=== PATIENT | female | born 1935 | race Caucasian/White ===

== ENCOUNTER 2019-05-18 21:58 | Inpatient (IN) ==
--- NOTE | 2019-05-18 22:29 | ERNOTE ---
ER Female HPI Stated Complaint: UTI Presenting Symptoms: other Time Seen by Provider: 05/18/19 22:28 Source: patient - Fatigue fever, family Exam Limitations: no limitations Immunizations: IMMUNIZATION HX Immunizations Up to Date Yes History of Influenza Vaccine No Hx Pneumococcal Vaccination Yes Allergies/Adverse Reactions: Allergies Iodinated Contrast Media [Iodinated Contrast- Oral and IV Dye] Allergy (Mild, Verified 05/19/19 05:11) Hives iodine Allergy (Mild, Verified 05/19/19 05:11) Hives sulfacetamide Allergy (Mild, Verified 05/19/19 05:11) Hives latex Adverse Reaction (Mild, Verified 05/19/19 05:11) RASH Home Medications: HOME MEDICATIONS Multivitamin [Multivitamins] 1 ea PO DAILY 11/16/12 [Last Taken Unknown] Blood Sugar Diagnostic, Drum [Accu-Chek Compact] 1 ea MC DAILY 03/21/15 [Last Taken Unknown] Cholecalciferol (Vitamin D3) [Vitamin D-3] 2,000 unit PO DAILY 03/21/15 [Last Taken Unknown] Clopidogrel Bisulfate [Plavix] 75 mg PO DAILY 03/21/15 [Last Taken Unknown] Famotidine [Pepcid AC] 10 mg PO DAILY PRN 03/21/15 [Last Taken Unknown] coenzyme Q10 10 mg capsule 10 mg PO DAILY cap 02/15/18 [Last Taken Unknown] hydrochlorothiazide 12.5 mg capsule 12.5 mg PO DAILY 02/15/18 [Last Taken Unknown] pravastatin 20 mg tablet 20 mg PO DAILY #90 tab 04/27/18 [Last Taken Unknown] acetaminophen 500 mg tablet 500 mg PO Q6H PRN 06/03/18 [Last Taken Unknown] losartan 100 mg tablet 100 mg PO DAILY #90 tab 08/16/18 [Last Taken Unknown] glipizide ER 5 mg tablet, extended release 24 hr 5 mg PO DAILY #90 tab 01/20/19 [Last Taken Unknown] levothyroxine 125 mcg tablet 125 mcg PO DAILY #90 tab 01/20/19 [Last Taken Un known] amlodipine 5 mg tablet 5 mg PO DAILY #90 tab 04/15/19 [Last Taken Unknown] hydrocodone 5 mg-acetaminophen 325 mg tablet See Rx Instructions PO .COMPLEX PRN #30 tab 04/28/19 [Last Taken Unknown] - History of Present Illness Narrative: Patient was in the hospital here over the weekend diagnosed with UTI 2 days ago. She was unable to get the antibiotics until yesterday she started feeling better today in the morning but in the evening began to be febrile and fatigued. Timing: Present: getting worse Quality: Present: moderate, severe Prior Treatment: Present: recently seen, treated by physician, currently on antibiotics Review of Systems - Review of Systems Constitutional: Present: See HPI, recent illness, fever, fatigue EYE: Absent: vision changes Respiratory: Present: shortness of breath Cardiology: Absent: chest pain, palpitations Gastrointestinal/Abdominal: Present: nausea. 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 Everett Surgical History: Surgical History (Updated 05/25/18 @ 10:45 by Oscar Jones RN) History of esophagogastroduodenoscopy (EGD) Onset Date: ~04/2018 [facility] H/O colonoscopy Onset Date: ~2006 benign polyp H/O dilation and curettage Onset Date: ~2006 polypectomy at [facility] H/O hernia repair x4 surgeries on bilateral [id number] H/O tubal ligation History of carpal tunnel release '13 & '15 History of colon surgery Onset Date: ~1996 ruptured diverticulitis, had colostomy for 3 months History of thyroid surgery Onset Date: ~1989 nodule History of tonsillectomy arteriectomy, carotid Onset Date: ~2003 Family History: Family History (Updated 02/15/18 @ 09:59 by KARINA Marcelo) Brother , suicide No problems noted. Father Myocardial infarction, Onset Age: 73 Lung cancer Cancer of kidney Mother , 70 CVA (cerebral vascular accident) Social History: (Last Reviewed 05/19/19 @ 05:12 by Xenia Her RN) Social History: Marital status: household members: spouse current occupational status: retired current occupation: retired Highest education level completed: 11th grade Service: No Tobacco: Smoking Status: Never smoker Alcohol: alcohol intake: current alcohol intake frequency: holiday/special occasion Substance Use: substance use type: does not use Dietary Habits: caffeine: Yes caffeine comment: everyday Type: other Exercise: frequency: 1-2 times per week Physical Exam - Physical Exam General Appearance: Present: wd/wn, alert, mild distress Head Exam: Present: normal inspection, no evidence of injury Respiratory: Present: no respiratory distress, no accessory muscle use Cardiovascular/Chest: Present: tachycardia, systolic murmur Gastrointestinal/Abdominal: Present: normal bowel sounds, nontender, nondis tended, soft, other - bruit heard right mid abdomen, no pain or palpable mass. Back Exam: Present: normal inspection, normal range of motion Extremity Exam: Present: normal inspection, normal range of motion Neurological Exam: Present: alert, oriented, normal mood/affect, no motor/sensory deficits Skin Exam: Present: normal color, warm/dry Progress - Results and Orders Patient's Lab Results:: I have reviewed the patient's lab results. - Vital Signs Patient's Vital Signs:: I have reviewed the patient's vital signs. Vital Signs: Vital Signs 05/18/19 22:04 Temperature 39.4 C H Pulse Rate 114 H Respiratory Rate 27 H Blood Pressure 160/75 H O2 Sat by Pulse Oximetry 90 L - EKG EKG #1 EKG: supraventricular tachycardia, RBBB EKG read: Interp. by md - CT/Ultrasound CT/Ultrasound Narrative: Ultrasound gallbladder. Gallbladder contains cholelithiasis, wall is not thickened nor edematous. Subtle intrahepatic biliary ductal dilatation suggested. No gross choledocholithiasis Fatty liver infiltration - Progress/Reassessment Chief Complaint: Genitourinary Problem Progress:: Unchanged Progress Note-Subjective: Patient meets SIRS criteria by temperature and heart rate. We do not have further criteria of organ dysfunction for sepsis criteria. Lactic acid is ordered but not returned. Liver ultrasound ordered to further evaluate liver enzyme elevation in the past 48 hours. 05/19/19 00:54 05/19/19 04:[address] Bullock and she agrees with admission and IV Rocephin Departure Clinical Impression: Failure of outpatient treatment, Elevated liver enzymes UTI (urinary tract infection) Qualifiers: Urinary tract infection type: site unspecified Hematuria presence: with hematuria Qualified Code(s): N39.0 - Urinary tract infection, site not specified - Departure Disposition: Still a patient Condition: Stable
[2019-05-18] MEDS ORDERED: ACETAMINOPHEN 1,000 MG/100 ML BTL IV ONE (22:33)
[2019-05-18 22:39] LABS: Urine Bilirubin Negative (NEGATIVE); Urine Blood 50 /ul (NEGATIVE); Urine Ketone 15 mg/dL (NEGATIVE); Urine Nitrite Negative (NEGATIVE); Urine Protein 30 mg/dL (NEGATIVE); Urine Urobilinogen Normal (NORMAL)
[2019-05-18 22:50] LABS: Hematocrit 34.6 % (37.0-47.0); Hemoglobin 11.4 gm/dL (12.5-16.0); Mean Cell Volume 85.4 fl (78-100); Mean Corpuscular Hemoglobin 28.1 pg (27-31); Mean Corpuscular Hgb Conc 32.9 g/dl (32-36); Mean Platelet Volume 10.6 fl (8-12.5); Neutrophil # 6.1 K/mm3 (1.3-6.0); Neutrophil % 87.2 % (42-75.0); Platelet Count 149 K/mm3 (150-450); Red Blood Count 4.05 M/mm3 (4.2-5.4); Red Cell Distribution Width 16.3 % (11.5-14.0)
[2019-05-18 22:51] LABS: Urine Amorphous Sediment Few - 1+ (NONE-FEW); Urine Appearance Clear (CLEAR); Urine Bacteria 1+; Urine Color Yellow; Urine RBC TRACE /hpf (0-5); Urine WBC 0-5 /hpf (0-5)
[2019-05-18 23:07] LABS: Albumin * 2.9 gm/dl (3.4-5.0); Anion Gap 16.2 mmol/L (6.8-13.8); BUN/Creatinine Ratio 22.3 (9.0-21.6); Bilirubin, Total 0.9 mg/dL (0.0-1.1); Ca. Corrected For Albumin 7.9 mg/dL (8.4-10.2); Calcium * 7.3 mg/dL (7.9-10.9); Carbon Dioxide 24.3 mmol/L (24-32.6); Potassium 3.5 mmol/L (3.4-4.6); Total Protein 6.6 gm/dL (6.2-8.2)
[2019-05-18] MEDS ORDERED: NORMAL SALINE 1,000 ML IV ONE (23:29)
[2019-05-19 01:04] LABS: Amylase * 70 U/L (25-115); Lipase 377 U/L (73-393)
[2019-05-19] MEDS ORDERED: cefTRIAXone SODIUM 1,000 MG/100 ML BAG IV ONE (03:08)
--- NOTE | 2019-05-19 09:09 | HP ---
Chief Complaint - Chief Complaint Date of Service: 05/19/19 Time of Service: 08:53 Chief Complaint: fever/chills/weakness History of Present Illness: Eloina Pryor is an 84-year-old white female with past medical history of hypertension, hyperlipidemia, coronary artery disease, diabetes mellitus type 2, CVA, who was admitted on 05/19/2019 because of fever, chills, weakness and fatigue. The patient was seen in our emergency room 4 days ago for weakness and increased frequency of 2 weeks duration. She was diagnosed with urinary tract infection and was started on Macrobid. She was not able to get that medicine until about 2 days ago. She was back in the emergency room on 05/17/2019 because family felt that her weakness was progressing. Her urine culture and sensitivity was growing E. coli which was sensitive to the Macrobid. She was told to increase her oral fluid intake and continue with her antibiotic. Last night the patient started having fever, chills, with temperature of 105 F and so she was brought back to our emergency room. Her liver enzymes were elevated (AST/ALT/AlkPhos -561/324/333)with normal total bilirubin, amylase. lipase. She did not have any CVA tenderness or abdominal pain especially in the right upper quadrant. Since she fulfilled the criteria for SIRS per ED with focus of infection of urinary tract infection she was admitted for further treatment and evaluation. Her ultrasound of her gallbladder showed a gallbladder stone with intrahepatic biliary ductal dilatation, fatty liver but did not mention of gallbladder wall thickness or acute cholecystitis. 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 Everett Surgical History: Surgical History (Updated 05/19/19 @ 09:09 by Lonnie Moore MD) History of esophagogastroduodenoscopy (EGD) Onset Date: ~04/2018 [facility] H/O colonoscopy Onset Date: ~2006 benign polyp H/O dilation and curettage Onset Date: ~2006 polypectomy at [facility] H/O hernia repair x4 surgeries on bilateral [id number] H/O tubal ligation History of carpal tunnel release & History of colon surgery Onset Date: ~1996 ruptured diverticulitis, had colostomy for 3 months History of thyroid surgery Onset Date: ~1989 nodule History of tonsillectomy arteriectomy, carotid Onset Date: ~2003 Family History: Family History (Updated 02/15/18 @ 09:59 by KARINA Marcelo) Brother , suicide No problems noted. Father Myocardial infarction, Onset Age: 73 Lung cancer Cancer of kidney Mother , 70 CVA (cerebral vascular accident) Social History: (Last Reviewed 05/19/19 @ 05:12 by Xenia Her RN) Social History: Marital status: household members: spouse current occupational status: retired current occupation: retired Highest education level completed: 11th grade Service: No Tobacco: Smoking Status: Never smoker Alcohol: alcohol intake: current alcohol intake frequency: holiday/special occasion Substance Use: substance use type: does not use Dietary Habits: caffeine: Yes caffeine comment: everyday Type: other Exercise: frequency: 1-2 times per week Review Of Systems (GEN) - Review of Systems Generalized/Overall Review: Present: Weakness, Chills, Fever EENTM: Absent: Blurred Vision Respiratory: Absent: Cough, Shortness of Breath, Orthopnea, Wheezing Cardiac: Absent: Chest Pain, Edema Abdominal: Absent: Vomiting, Abdominal Pain, Constipation, Diarrhea Genitourinary: Present: Frequency. Absent: Urgency, Dysuria Musculoskeletal: Absent: Joint Pain, Back Pain Neurological: Absent: Headache Skin: Absent: Lesions, Rash Misc: All systems neg except as marked Immunizations: IMMUNIZATION HX Immunizations Up to Date Yes History of Influenza Vaccine No Hx Pneumococcal Vaccination Yes Allergies/Adverse Reactions: Allergies Allergy/AdvReac Type Severity Reaction Status Date / Time Iodinated Contrast Media Allergy Mild Hives Verified 05/19/19 05:11 [Iodinated Contrast- Oral and IV Dye] iodine Allergy Mild Hives Verified 05/19/19 05:11 sulfacetamide Allergy Mild Hives Verified 05/19/19 05:11 latex AdvReac Mild RASH Verified 05/19/19 05:11 Home Medications: HOME MEDICATIONS Multivitamin [Multivitamins] 1 ea PO DAILY 11/16/12 [Last Taken Unknown] Blood Sugar Diagnostic, Drum [Accu-Chek Compact] 1 ea MC DAILY 03/21/15 [Last Taken Unknown] Cholecalciferol (Vitamin D3) [Vitamin D-3] 2,000 unit PO DAILY 03/21/15 [Last Taken Unknown] Clopidogrel Bisulfate [Plavix] 75 mg PO DAILY 03/21/15 [Last Taken Unknown] Famotidine [Pepcid AC] 10 mg PO DAILY PRN 03/21/15 [Last Taken Unknown] coenzyme Q10 10 mg capsule 10 mg PO DAILY cap 02/15/18 [Last Taken Unknown] hydrochlorothiazide 12.5 mg capsule 12.5 mg PO DAILY 02/15/18 [Last Taken Unknown] pravastatin 20 mg tablet 20 mg PO DAILY #90 tab 04/27/18 [Last Taken Unknown] acetaminophen 500 mg tablet 500 mg PO Q6H PRN 06/03/18 [Last Taken Unknown] losartan 100 mg tablet 100 mg PO DAILY #90 tab 08/16/18 [Last Taken Unknown] glipizide ER 5 mg tablet, extended release 24 hr 5 mg PO DAILY #90 tab 01/20/19 [Last Taken Unknown] levothyroxine 125 mcg tablet 125 mcg PO DAILY #90 tab 01/20/19 [Last Taken Unknown] amlodipine 5 mg tablet 5 mg PO DAILY #90 tab 04/15/19 [Last Taken Unknown] hydrocodone 5 mg-acetaminophen 325 mg tablet See Rx Instructions PO .COMPLEX PRN #30 tab 04/28/19 [Last Taken Unknown] Exam - Exam Vital Signs: Vital Signs - Last Taken Temp 36.5 C 05/19/19 06:40 Pulse 71 05/19/19 06:40 Resp 20 05/19/19 06:40 BP 116/58 05/19/19 06:40 Pulse Ox 96 05/19/19 06:40 Constitutional: Present: Alert, Oriented x3, Elderly ENT Exam: Present: hearing grossly normal Eye Exam: bilateral eye: normal inspection, PERRL, EOMI Neck: Present: supple. Absent: lymphadenopathy (R), lymphadenopathy (L) Respiratory: Present: normal breath sounds, No rales, No wheezing Cardiovascular/Chest: Present: regular rate, rhythm, no JVD, no murmur Abdomen: Present: Normal bowel sounds, soft, nontender, nondistended, negative Baxter sign. Absent: CVA tenderness Extremity: Present: no pedal edema, no calf tenderness Diagnostic Studies: Abnormal Lab Results 05/18/19 05/18/19 05/18/19 Range/Units 22:30 22:45 22:45 RBC 4.05 L (4.2-5.4) M/mm3 Hgb 11.4 L (12.5-16.0) gm/dL Hct 34.6 L (37.0-47.0) % RDW 16.3 H (11.5-14.0) % Plt Count 149 L (150-450) K/mm3 Immature Gran % (Auto) 0.90 H (0.001-0.429) % Immature Gran # (Auto) 0.06 H (0.000-0.0310) K/mm3 Neutrophils % 87.2 H (42-75.0) % Lymphocytes % 5.3 L (20-51) % Neutrophils # 6.1 H (1.3-6.0) K/mm3 Lymphocytes # 0.37 L (1.5-3.5) k/mm3 Anion Gap 16.2 H (6.8-13.8) mmol/L Est GFR (Non-Af Amer) 55 L D (60-130) mL/min BUN/Creatinine Ratio 22.3 H (9.0-21.6) Random Glucose 153 H D (70-110) mg/dL Calcium 7.3 L (7.9-10.9) mg/dL Calcium Adj for Albumin 7.9 L (8.4-10.2) mg/dL AST 561 H (0-48) U/L ALT 324 H (19-67) U/L Alkaline Phosphatase 333 H (50-170) U/L Albumin 2.9 L (3.4-5.0) gm/dl Urine Protein 30 H (NEGATIVE) mg/dL Urine Blood 50 H (NEGATIVE) /ul Urine Bacteria 1+ H (NONE) Laboratory Results WBC 7.0 K/mm3 (4.0-10.5) 05/18/19 22:45 RBC 4.05 M/mm3 (4.2-5.4) L 05/18/19 22:45 Hgb 11.4 gm/dL (12.5-16.0) L 05/18/19 22:45 Hct 34.6 % (37.0-47.0) L 05/18/19 22:45 MCV 85.4 fl (78-100) 05/18/19 22:45 MCH 28.1 pg (27-31) 05/18/19 22:45 MCHC 32.9 g/dl (32-36) 05/18/19 22:45 RDW 16.3 % (11.5-14.0) H 05/18/19 22:45 Plt Count 149 K/mm3 (150-450) L 05/18/19 22:45 MPV 10.6 fl (8-12.5) 05/18/19 22:45 Immature Gran % (Auto) 0.90 % (0.001-0.429) H 05/18/19 22:45 Immature Gran # (Auto) 0.06 K/mm3 (0.000-0.0310) H 05/18/19 22:45 87.2 % (42-75.0) H 05/18/19 22:45 5.3 % (20-51) L 05/18/19 22:45 3.9 % (0.0-9) 05/18/19 22:45 2.7 % (0.0-3.0) 05/18/19 22:45 0.0 % (0.0-1.0) 05/18/19 22:45 Nucleated RBC % 0.0 k/mm3 (0-1) 05/18/19 22:45 6.1 K/mm3 (1.3-6.0) H 05/18/19 22:45 0.37 k/mm3 (1.5-3.5) L 05/18/19 22:45 0.3 k/mm3 (0.0-1.0) 05/18/19 22:45 0.2 k/mm3 (0.0-0.7) 05/18/19 22:45 Absolute Basophils 0.0 k/mm3 (0.0-0.1) 05/18/19 22:45 Sodium 139 mmol/L (132-142) 05/18/19 22:45 140 mmol/L (130-142) 05/18/19 22:45 Potassium 3.5 mmol/L (3.4-4.6) 05/18/19 22:45 Chloride 102 mmol/L (97-106) 05/18/19 22:45 Carbon Dioxide 24.3 mmol/L (24-32.6) 05/18/19 22:45 16.2 mmol/L (6.8-13.8) H 05/18/19 22:45 BUN 23 mg/dL (3-23) 05/18/19 22:45 1.03 mg/dL (0.4-1.4) 05/18/19 22:45 Est GFR (Non-Af Amer) 55 mL/min (60-130) L D 05/18/19 22:45 22.3 (9.0-21.6) H 05/18/19 22:45 153 mg/dL (70-110) H D 05/18/19 22:45 1.6 mmol/L (0.4-2.0) 05/19/19 00:35 Calcium 7.3 mg/dL (7.9-10.9) L 05/18/19 22:45 Calcium Adj for Albumin 7.9 mg/dL (8.4-10.2) L 05/18/19 22:45 0.9 mg/dL (0.0-1.1) 05/18/19 22:45 AST 561 U/L (0-48) H 05/18/19 22:45 ALT 324 U/L (19-67) H 05/18/19 22:45 333 U/L (50-170) H 05/18/19 22:45 6.6 gm/dL (6.2-8.2) 05/18/19 22:45 2.9 gm/dl (3.4-5.0) L 05/18/19 22:45 Amylase 70 U/L (25-115) 05/19/19 00:47 377 U/L (73-393) 05/19/19 00:47 Yellow 05/18/19 22:30 Clear (CLEAR) 05/18/19 22:30 6.0 pH (5.0-7.0) 05/18/19 22:30 Ur Specific Pollock 1.010 SP.GR. (1.005-1.010) 05/18/19 22:30 30 mg/dL (NEGATIVE) H 05/18/19 22:30 Negative mg/dL (NEGATIVE) 05/18/19 22:30 15 mg/dL (NEGATIVE) 05/18/19 22:30 50 /ul (NEGATIVE) H 05/18/19 22:30 Negative (NEGATIVE) 05/18/19 22:30 Negative mg/dl (NEGATIVE) 05/18/19 22:30 Prot Sulfosalicylic Acd 1+ mg/dL (0) 05/18/19 22:30 Normal EU/dl (NORMAL) 05/18/19 22:30 Ur Leukocyte Esterase Negative /ul (NEGATIVE) 05/18/19 22:30 Trace /hpf (0-5) 05/18/19 22:30 0-5 /hpf (0-5) 05/18/19 22:30 Ur Epithelial Cells None seen /hpf (0-5) 05/18/19 22: Amorphous Sediment Few - 1+ (NONE-FEW) 05/18/19 22:30 1+ (NONE) H 05/18/19 22:30 Culture to follow 05/18/19:30 Assessment/Plan - Narrative Narrative: Eloina Pryor is an 84-year-old white female admitted for fever, chills, weakness and fatigue. She was diagnosed with urinary tract infection growing E. coli and was started on Macrobid of which she has taken a total of 6 tablets. She developed fever, chills, more weakness and fatigue last night and states she was brought back to the emergency room and was admitted early this morning with SIRS, UTI and elevated liver enzymes. Her ultrasound showed a gallbladder stone with subtle dilatation of intrahepatic biliary ducts. It did not mention thickening of the gallbladder wall or acute cholecystitis. He did not mention thickening of the gallbladder wall or acute cholecystitis. Her amylase, lipase, and bilirubin were within normal limits. Her AST to ALT ratio is not more than 2 is the one. She received Rocephin in the emergency room for her UTI. She does not have any CVA tenderness, right upper quadrant pain. Her elevated AST ALT and alkaline phosphatase could be either hepatocellular versus chol estaticintrahepatic (likely drug induced - Macrobid) versus extrahepatic ( GB stone) . We will add GGT, TSH to her labs. We will repeat CBC, CMP, and do PT/INR and hepatitis panel at noon time. Consider adding iron levels if liver function tests continue to be elevated. Will defer from adding REGINA, ASMA as this is unlikely autoimmune. We will get a surgical consult for their opinion. We will continue with IV Rocephin. Consider adding Flagyl to her antibiotic regimen. D/C macrobid. - Assessment/Plan (1) UTI (urinary tract infection) Assessment: E.Coli Problem: Acute Qualifiers: Urinary tract infection type: site unspecified Hematuria presence: with hematuria Qualified Code(s): N39.0 - Urinary tract infection, site not specified; R31.9 - Hematuria, unspecified (2) Failure of outpatient treatment Problem: Acute (3) Elevated liver enzymes Assessment: hepatocellular vs cholestatic- intrahepatic vs extrahepatic. Problem: Acute (4) CAD (coronary artery disease) Problem: Chronic (5) Hypertension Problem: Chronic (6) CVA (cerebral vascular accident) Assessment: history of Problem: Chronic (7) Fatty liver Assessment: likely due to DREW. unlikely cause of the sudden elevated LFT due to the acuteness. Problem: Suspected
[2019-05-19] MEDS ORDERED: FAMOTIDINE 20 MG TABLET PO PRN (09:10)
[2019-05-19] MEDS ORDERED: ACETAMINOPHEN 500 MG TABLET PO PRN (09:10)
[2019-05-19] MEDS ORDERED: HYDROCHLOROTHIAZIDE 12.5 MG CAPSULE PO SCH (09:15)
[2019-05-19] MEDS: CLOPIDOGREL BISULFATE 75 MG TABLET PO SCH (09:49)
[2019-05-19] MEDS: LOSARTAN POTASSIUM 50 MG TABLET PO SCH (09:49)
[2019-05-19] MEDS: amLODIPine BESYLATE 5 MG TABLET PO SCH (09:49)
[2019-05-19] MEDS: LEVOTHYROXINE SODIUM 125 MCG TABLET PO SCH (09:50)
[2019-05-19] MEDS: metroNIDAZOLE/SODIUM CHLORIDE 500 MG/100 ML BAG IV SCH ×2 (11:03→19:35)
--- NOTE | 2019-05-19 11:55 | CONS ---
[facility] - General Date of Service: 05/19/19 Narrative: cholelithiasis Source: patient Exam Limitations: no limitations - History of Present Illness Initial Comments: Eloina is a very pleasant 84-year-old female who was admitted for UTI with sepsis. She was found to have elevated liver enzymes with a normal bilirubin. Her common bile duct is normal for her age. She was also found to have cholelithiasis. She is currently doing well and denies any abdominal pain. She did not previously know that she had a gallstone. She is typically able to eat whatever she would like including fatty foods. She denies any postprandial abdominal pain. She denies nausea or vomiting. Timing/Duration: other Severity: mild Modifying Factors - (Worsens): Reports: other - No pain Modifying Factors - (Improves): Reports: other - No pain Associated Symptoms: denies symptoms Allergies/Adverse Reactions: Allergies Iodinated Contrast Media [Iodinated Contrast- Oral and IV Dye] Allergy (Mild, Verified 05/19/19 05:11) Hives iodine Allergy (Mild, Verified 05/19/19 05:11) Hives sulfacetamide Allergy (Mild, Verified 05/19/19 05:11) Hives latex Adverse Reaction (Mild, Verified 05/19/19 05:11) RASH Home Medications: Home Medications Medication Instructions Recorded Last Taken Multivitamin [Multivitamins] 1 ea PO DAILY 11/16/12 Unknown Blood Sugar Diagnostic, Drum 1 ea MC DAILY 03/21/15 Unknown [Accu-Chek Compact] Cholecalciferol (Vitamin D3) 2,000 unit PO DAILY 03/21/15 Unknown [Vitamin D-3] Clopidogrel Bisulfate [Plavix] 75 mg PO DAILY 03/21/15 Unknown Famotidine [Pepcid AC] 10 mg PO DAILY PRN 03/21/15 Unknown coenzyme Q10 10 mg capsule 10 mg PO DAILY cap 02/15/18 Unknown hydrochlorothiazide 12.5 mg capsule 12.5 mg PO DAILY 02/15/18 Unknown pravastatin 20 mg tablet 20 mg PO DAILY #90 tab 04/27/18 Unknown acetaminophen 500 mg tablet 500 mg PO Q6H PRN 06/03/18 Unknown losartan 100 mg tablet 100 mg PO DAILY #90 tab 08/16/18 Unknown glipizide ER 5 mg tablet, extended 5 mg PO DAILY #90 tab 01/20/19 Unknown release 24 hr levothyroxine 125 mcg tablet 125 mcg PO DAILY #90 tab 01/20/19 Unknown amlodipine 5 mg tablet 5 mg PO DAILY #90 tab 04/15/19 Unknown hydrocodone 5 mg-acetaminophen 325 See Rx Instructions PO .COMPLEX 04/28/19 Unknown mg tablet PRN #30 tab Procedures Arthroscopy, wrist (03/28/15) Colonoscopy (06/16/11) Release Median Nerve, Percutaneous Endoscopic Approach (03/28/15) Release of carpal tunnel (03/28/15) Medications - Medications Current Medications: Current Medications Amlodipine Besylate (Norvasc) 5 mg PO DAILY [facility] Stop: 06/18/19 09:16 Last Admin: 05/19/19 09:49 Dose: 5 mg Documented by: Clopidogrel Bisulfate (Plavix) 75 mg PO DAILY [facility] Stop: 06/18/19 09:16 Last Admin: 05/19/19 09:49 Dose: 75 mg Documented by: Hydrochlorothiazide (Microzide) 12.5 mg PO DAILY [facility] Stop: 06/18/19 09:16 Last Admin: 05/19/19 09:50 Dose: Not Given Documented by: Metronidazole (Flagyl) 500 mg in 100 mls @ 100 mls/hr IV Q8H [facility]; Protocol Stop: 06/18/19 10:31 Last Admin: 05/19/19 11:03 Dose: 100 mls/hr Documented by: Levothyroxine Sodium (Synthroid) 125 mcg PO DAILY@0700 [facility] Stop: 06/18/19 09:16 Last Admin: 05/19/19 09:50 Dose: 125 mcg Documented by: Losartan Potassium (Cozaar) 100 mg PO DAILY [facility] Stop: 06/18/19 09:16 Last Admin: 05/19/19 09:49 Dose: 100 mg Documented by: Review of Systems - Review of Systems Generalized/Overall Review: Present: No Symptoms Reported EENTM: Present: No Symptoms Reported Respiratory: Present: No Symptoms Reported Cardiac: Present: No Symptoms Reported Abdominal: Present: No Symptoms Reported Genitourinary: Present: No Symptoms Reported Musculoskeletal: Present: No Symptoms Reported Neurological: Present: No Symptoms Reported Skin: Present: No Symptoms Reported Endocrine: Present: No Symptoms Reported Physical Examination - Exam Vital Signs: Vital Signs - Last Taken Temp 36.5 C 05/19/19 06:40 Pulse 71 05/19/19 09:49 Resp 20 05/19/19 06:40 BP 116/58 05/19/19 09:49 Pulse Ox 96 05/19/19 06:40 O2 Oxygen Delivery Method Nasal Cannula Constitutional: Present: Alert, Oriented x3, Cooperative ENT Exam: Present: hearing grossly normal Eye Exam: bilateral eye: normal inspection Neck: Present: supple Breasts: Present: Exam deferred Respiratory: Present: lungs clear, normal breath sounds Cardiovascular/Chest: Present: regular rate, rhythm Abdomen: Present: soft, nontender, nondistended /Rectal: Present: Exam deferred Extremity: Present: normal range of motion Skin Exam: Present: normal color 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 Appearance: Present: appropriate appearance, appropriate insight Eye contact: Present: cooperative, good eye contact, normal speech Thoughts: Present: normal thought pattern, no apparent hallucination - Results and Findings: Lab/Microbiology results last 24 hrs: Abnormal/Pending Laboratory Last 24 HRS 05/18/19 05/18/19 05/18/19 22:45 22:45 22:45 RBC 4.05 L Hgb 11.4 L Hct 34.6 L RDW 16.3 H Plt Count 149 L Immature Gran % (Auto) 0.90 H Immature Gran # (Auto) 0.06 H Neutrophils % 87.2 H Lymphocytes % 5.3 L Neutrophils # 6.1 H Lymphocytes # 0.37 L Anion Gap 16.2 H Est GFR (Non-Af Amer) 55 L D BUN/Creatinine Ratio 22.3 H Random Glucose 153 H D Calcium 7.3 L Calcium Adj for Albumin 7.9 L GGT 316 H AST 561 H ALT 324 H Alkaline Phosphatase 333 H Albumin 2.9 L Urine Protein Urine Blood Urine Bacteria 05/18/19 22:30 RBC Hgb Hct RDW Plt Count Immature Gran % (Auto) Immature Gran # (Auto) Neutrophils % Lymphocytes % Neutrophils # Lymphocytes # Anion Gap Est GFR (Non-Af Amer) BUN/Creatinine Ratio Random Glucose Calcium Calcium Adj for Albumin GGT AST ALT Alkaline Phosphatase Albumin Urine Protein 30 H Urine Blood 50 H Urine Bacteria 1+ H - Assessments/Findings (1) Cholelithiasis Problem: Acute (2) Elevated liver enzymes Problem: Acute (3) Failure of outpatient treatment Problem: Acute (4) UTI (urinary tract infection) Problem: Acute Qualifiers: Urinary tract infection type: site unspecified Hematuria presence: with hematuria Qualified Code(s): N39.0 - Urinary tract infection, site not specified; R31.9 - Hematuria, unspecified (5) Fatty liver Problem: Suspected Plan - Plan Plan: Patient was found to have incidental cholelithiasis. She is asymptomatic from her gallstone. I would recommend watchful waiting. Her elevated liver enzymes are likely due to DREW. She does not have an obstructive pattern on her labs. Her bilirubin is normal. Her common bile duct is normal for her age. She denies any postprandial symptoms typically. Recommend observation. I discussed with her potential complications and symptoms of biliary colic.
[2019-05-19] MEDS: INSULIN LISPRO 100 UNITS/ML VIAL SC SCH ×2 (11:59→16:53)
[2019-05-19 12:09] LABS: Hematocrit 32.2 % (37.0-47.0); Hemoglobin 10.4 gm/dL (12.5-16.0); Mean Cell Volume 86.6 fl (78-100); Mean Corpuscular Hgb Conc 32.3 g/dl (32-36); Platelet Count 142 K/mm3 (150-450); Red Blood Count 3.72 M/mm3 (4.2-5.4); Red Cell Distribution Width 16.5 % (11.5-14.0); White Blood Count 4.8 K/mm3 (4.0-10.5)
[2019-05-19 12:11] LABS: Total Cells Counted 100
[2019-05-19] MEDS: ENOXAPARIN SODIUM 40 MG/0.4 ML SYRG SC SCH (12:11)
[2019-05-19 12:16] LABS: Prothrombin Time (Patient) 11.1 Seconds (9.1-10.7)
[2019-05-19 12:17] LABS: INR 1.13 INR (0.92-1.08)
[2019-05-19 12:19] LABS: BUN/Creatinine Ratio 15.5 (9.0-21.6)
[2019-05-19 12:20] LABS: Albumin * 2.4 gm/dl (3.4-5.0); Anion Gap 16.2 mmol/L (6.8-13.8); Bilirubin, Total 0.7 mg/dL (0.0-1.1); Ca. Corrected For Albumin 7.9 mg/dL (8.4-10.2); Calcium * 6.9 mg/dL (7.9-10.9); Carbon Dioxide 24.6 mmol/L (24-32.6); Potassium 3.8 mmol/L (3.4-4.6); Total Protein 6.1 gm/dL (6.2-8.2)
[2019-05-19 12:47] LABS: Atypical (Reactive) Lymph 1 % (0-2); Band 5 % (0-2.0); Eosinophil 6 % (0-3); Lymphocyte 6 % (20-51); Monocyte 9 % (0-9); Neutrophil 73 % (42-75); Neutrophil # 3.5 K/mm3 (1.3-6.0)
[2019-05-19 12:49] LABS: Hypochromia Trace; Polychromasia Trace; Target Cells Trace
[2019-05-19 12:50] LABS: Platelet Estimate Decreased (NORMAL)
[2019-05-20] MEDS: metroNIDAZOLE/SODIUM CHLORIDE 500 MG/100 ML BAG IV SCH ×2 (02:16→10:52)
[2019-05-20 05:46] LABS: Hematocrit 30.5 % (37.0-47.0); Mean Cell Volume 85.2 fl (78-100); Mean Corpuscular Hemoglobin 27.9 pg (27-31); Mean Corpuscular Hgb Conc 32.8 g/dl (32-36); Neutrophil # 2.4 K/mm3 (1.3-6.0); Platelet Count 183 K/mm3 (150-450); Red Blood Count 3.58 M/mm3 (4.2-5.4); Red Cell Distribution Width 16.4 % (11.5-14.0); White Blood Count 4.6 K/mm3 (4.0-10.5)
[2019-05-20 06:00] LABS: Albumin * 2.5 gm/dl (3.4-5.0); Anion Gap 13.9 mmol/L (6.8-13.8); BUN/Creatinine Ratio 19.8 (9.0-21.6); Bilirubin, Total 0.4 mg/dL (0.0-1.1); Ca. Corrected For Albumin 8.3 mg/dL (8.4-10.2); Calcium * 7.4 mg/dL (7.9-10.9); Carbon Dioxide 25.6 mmol/L (24-32.6); Potassium 3.5 mmol/L (3.4-4.6); Total Protein 6.1 gm/dL (6.2-8.2)
[2019-05-20] MEDS: INSULIN LISPRO 100 UNITS/ML VIAL SC SCH ×3 (06:48→16:27)
[2019-05-20] MEDS: LOSARTAN POTASSIUM 50 MG TABLET PO SCH (08:14)
[2019-05-20] MEDS: LEVOTHYROXINE SODIUM 125 MCG TABLET PO SCH (08:14)
[2019-05-20] MEDS: amLODIPine BESYLATE 5 MG TABLET PO SCH (08:15)
[2019-05-20] MEDS: CLOPIDOGREL BISULFATE 75 MG TABLET PO SCH (08:16)
[2019-05-20] MEDS ORDERED: FLU VACC QS2019-20(6MOS UP)/PF 60 MCG/0.5 ML SYRINGE IM ONE (08:23)
--- NOTE | 2019-05-20 09:17 | PN ---
Subjective - Date and Time Seen Date: 05/20/19 Time: 08:58 Subjective Narrative: Patient is feeling better. Tmax for 05/19/2019-38.6. Afebrile today. Objective - Review of Systems Generalized/Overall Review: Reports: Weakness. Denies: Chills, Fever EENTM: Denies: Blurred Vision Respiratory: Denies: Cough, Shortness of Breath, Orthopnea Cardiac: Denies: Chest Pain, Edema, Palpitations Abdominal: Denies: Nausea, Vomiting, Abdominal Pain Genitourinary Symptoms: Denies: Urgency, Frequency Musculoskeletal Complaints: Denies: Joint Pain, Back Pain Neurological: Denies: Headache Skin: Denies: Lesions, Rash Endocrine: Denies: Intolerance to Cold, Intolerance to Heat - Vitals Vitals: Last Vital Signs Temp 36.7 C 05/20/19 07:03 Pulse 82 05/20/19 08:15 Resp 12 05/20/19 07:03 BP 138/74 05/20/19 08:15 Pulse Ox 94 05/20/19 07:03 - Abnormal Lab Findings Abnormal Lab Findings: Abnormal Lab Results 05/18/19 05/19/19 05/19/19 Range/Units 22:45 12:00 12:00 RBC 3.72 L (4.2-5.4) M/mm3 Hgb 10.4 L (12.5-16.0) gm/dL Hct 32.2 L (37.0-47.0) % RDW 16.5 H (11.5-14.0) % Plt Count 142 L (150-450) K/mm3 Immature Gran % (Auto) (0.001-0.429) % Immature Gran # (Auto) (0.000-0.0310) K/mm3 Band Neuts % (Manual) 5 H (0-2.0) % Lymphocytes % (Manual) 6 L (20-51) % Monocytes % (0.0-9) % Eosinophils % (0.0-3.0) % Eosinophils % (Manual) 6 H (0-3) % Lymphocytes # (1.5-3.5) k/mm3 Lymphocytes # (Manual) 0.3 L (1.5-3.5) k/mm3 Platelet Estimate Decreased L (NORMAL) PT (9.1-10.7) Seconds INR (Anticoag Therapy) (0.92-1.08) INR Sodium 143 H (132-142) mmol/L Plasma Sodium 144 H (130-142) mmol/L Chloride (97-106) mmol/L Anion Gap 16.2 H (6.8-13.8) mmol/L Est GFR (Non-Af Amer) 51 L (60-130) mL/min Random Glucose 182 H (70-110) mg/dL Calcium 6.9 L (7.9-10.9) mg/dL Calcium Adj for Albumin 7.9 L (8.4-10.2) mg/dL GGT 316 H (4-104) U/L AST 416 H (0-48) U/L ALT 362 H (19-67) U/L Alkaline Phosphatase 353 H (50-170) U/L Total Protein 6.1 L (6.2-8.2) gm/dL Albumin 2.4 L (3.4-5.0) gm/dl 05/19/19 05/20/19 05/20/19 Range/Units 12:00 05:20 05:25 RBC 3.58 L (4.2-5.4) M/mm3 Hgb 10.0 L (12.5-16.0) gm/dL Hct 30.5 L (37.0-47.0) % RDW 16.4 H (11.5-14.0) % Plt Count (150-450) K/mm3 Immature Gran % (Auto) 0.90 H (0.001-0.429) % Immature Gran # (Auto) 0.04 H (0.000-0.0310) K/mm3 Band Neuts % (Manual) (0-2.0) % Lymphocytes % (Manual) (20-51) % Monocytes % 13.0 H (0.0-9) % Eosinophils % 11.7 H (0.0-3.0) % Eosinophils % (Manual) (0-3) % Lymphocytes # 0.97 L (1.5-3.5) k/mm3 Lymphocytes # (Manual) (1.5-3.5) k/mm3 Platelet Estimate (NORMAL) PT 11.1 H (9.1-10.7) Seconds INR (Anticoag Therapy) 1.13 H (0.92-1.08) INR Sodium 144 H (132-142) mmol/L Plasma Sodium 144 H (130-142) mmol/L Chloride 108 H (97-106) mmol/L Anion Gap 13.9 H (6.8-13.8) mmol/L Est GFR (Non-Af Amer) (60-130) mL/min Random Glucose 120 H D (70-110) mg/dL Calcium 7.4 L (7.9-10.9) mg/dL Calcium Adj for Albumin 8.3 L (8.4-10.2) mg/dL GGT (4-104) U/L AST 291 H (0-48) U/L ALT 378 H (19-67) U/L Alkaline Phosphatase 371 H (50-170) U/L Total Protein 6.1 L (6.2-8.2) gm/dL Albumin 2.5 L (3.4-5.0) gm/dl - Exam Constitutional: Present: Alert, Elderly. Absent: Oriented x3, Cooperative ENT Exam: Present: hearing grossly normal Neck: Present: supple. Absent: lymphadenopathy (R), lymphadenopathy (L) Respiratory: Present: decreased breath sounds, No rales, No wheezing Cardiovascular/Chest: Present: regular rate, rhythm, no JVD, no murmur Abdomen: Present: Normal bowel sounds, soft, nontender, nondistended Extremity: Present: no pedal edema, no calf tenderness Assessment/Plan Plan Narrative: Eloina Pryor ultrasound showed gallbladder stone with dilated is an 84-year-old white female admitted yesterday for urinary tract infection and liver enzymes . Her ultrasound showed gallbladder stone with dilated intrahepatic biliary ducts. While here AST is trending down from 561/416/219 her ALT is trending up from 324/262/378. Her alkaline phosphatase is also trending up to 333/353/371. Her bilirubin is remaining normal. General surgery was consulted for her gallbladder stones. Since she was symptomatic they are just to monitor her clinically. Her elevated liver enzymes high likely due to drug-induced liver injury from her Macrobid due to cholestasis, mixed. Her Macrobid has been put on hold since yesterday. There has not been good studies to show the benefit of glucocorticoids in drug-induced liver injury. Acute steatohepatitis drug- induced is rare. I will continue to monitor her liver function test and monitor clinically make sure that patient does not going to hepatic encephalopathy and going to acute liver failure because if she does she will need to be transferred to [facility]. In the meantime we will continue with her IV antibiotics for her urinary tract infection and will stop her Flagyl. No - Problems/Diagnosis (1) Drug-induced liver injury Problem: Acute (2) Elevated liver enzymes Problem: Acute (3) UTI (urinary tract infection) Problem: Acute Qualifiers: Urinary tract infection type: site unspecified Hematuria presence: with hematuria Qualified Code(s): N39.0 - Urinary tract infection, site not specified; R31.9 - Hematuria, unspecified (4) Failure of outpatient treatment Problem: Acute (5) CAD (coronary artery disease) Problem: Chronic (6) Hypertension Problem: Chronic (7) CVA (cerebral vascular accident) Problem: Chronic (8) Fatty liver Problem: Suspected (9) Cholelithiasis Problem: Acute Qualifiers: Cholelithiasis location: gallbladder
[2019-05-20 11:13] LABS: Hepatitis C Antibody NON-REACTIVE (NON-REACTIVE); Hepatitis Panel Confirmation DNR
[2019-05-20] MEDS: ENOXAPARIN SODIUM 40 MG/0.4 ML SYRG SC SCH (12:09)
[2019-05-20 12:49] LABS: Hepatitis B Surface Antigen NON-REACTIVE (NON-REACTIVE)
[2019-05-21 06:33] LABS: Prothrombin Time (Patient) 10.5 Seconds (9.1-10.7)
[2019-05-21 06:40] LABS: Albumin * 2.9 gm/dl (3.4-5.0); BUN/Creatinine Ratio 18.5 (9.0-21.6); Bilirubin, Total 0.4 mg/dL (0.0-1.1); Ca. Corrected For Albumin 8.5 mg/dL (8.4-10.2); Calcium * 7.9 mg/dL (7.9-10.9); Total Protein 6.8 gm/dL (6.2-8.2)
[2019-05-21 06:41] LABS: INR 1.06 INR (0.92-1.08)
[2019-05-21] MEDS: INSULIN LISPRO 100 UNITS/ML VIAL SC SCH (06:57)
[2019-05-21] MEDS: LEVOTHYROXINE SODIUM 125 MCG TABLET PO SCH (07:04)
[2019-05-21] MEDS: CLOPIDOGREL BISULFATE 75 MG TABLET PO SCH (08:39)
[2019-05-21] MEDS: amLODIPine BESYLATE 5 MG TABLET PO SCH (08:39)
[2019-05-21] MEDS: LOSARTAN POTASSIUM 50 MG TABLET PO SCH (08:39)
[2019-05-21 10:08] VITALS: BP 138/71
--- NOTE | 2019-05-21 10:44 | DS ---
(1) Drug-induced liver injury Problem: Acute (2) Elevated liver enzymes Problem: Acute (3) UTI (urinary tract infection) Problem: Acute Qualifiers: Urinary tract infection type: site unspecified Hematuria presence: with hematuria Qualified Code(s): N39.0 - Urinary tract infection, site not specified; R31.9 - Hematuria, unspecified (4) Failure of outpatient treatment Problem: Acute (5) CAD (coronary artery disease) Problem: Chronic (6) Hypertension Problem: Chronic (7) CVA (cerebral vascular accident) Problem: Chronic (8) Fatty liver Problem: Suspected (9) Cholelithiasis Problem: Acute Qualifiers: Cholelithiasis location: gallbladder Date of Discharge:: 05/21/19 Description of Stay: Eloina Pryor is an 84-year-old white female with past medical history of hypertension, hyperlipidemia, coronary artery disease, diabetes mellitus type 2, CVA, who was admitted on 05/19/2019 because of fever, chills, weakness and fatigue. The patient was seen in our emergency room 4 days ago for weakness and increased frequency of 2 weeks duration. She was diagnosed with urinary tract infection and was started on Macrobid. She was not able to get that medicine until about 2 days ago. She was back in the emergency room on 05/17/2019 because family felt that her weakness was progressing. Her urine culture and sensitivity was growing E. coli which was sensitive to the Macrobid. She was told to increase her oral fluid intake and continue with her antibiotic. Last night the patient started having fever, chills, with temperature of 105 F and so she was brought back to our emergency room. Her liver enzymes were elevated (AST/ALT/AlkPhos -561/324/333)with normal total bilirubin, amylase. lipase. She did not have any CVA tenderness or abdominal pain especially in the right upper quadrant. Since she fulfilled the criteria for SIRS per ED with focus of infection of urinary tract infection she was admitted for further treatment and evaluation. Her ultrasound of her gallbladder showed a gallbladder stone with intrahepatic biliary ductal dilatation, fatty liver but did not mention of gallbladder wall thickness or acute cholecystitis. We added Flagyl to her Rocephin empirically. General surgery was consulted and they felt that she does have cholelithiasis but since she was clinically asymptomatic they were just going to monitor her clinically. Her acute elevated AST/ALT/alkaline phosphatase/INR with normal bilirubin likely was due to drug-induced liver injury and in this case likely Macrobid causing cholestatic/hepatocellular mixed injury. Her Macrobid was stopped and she was kept on IV Rocephin for her urinary tract infection. Her Flagyl also was stopped. Her elevated temperature, heart rate, respiratory rate were likely due to hypersensitivity reaction to her antibiotic causing drug-induced liver injury. Her elevated liver function test were trending up in the monitor her for any pending acute liver failure because if she did we needed to transfer her to [facility]. Her pro time INR has now normalized, her AST/ALT/alkaline phosphatase is now showing a downward trend after 2 days being of Macrobid. She has had 3 days of IV Rocephin for her UTI. We will hold her statin medication for now until her liver function tests normalizes or gets close to normal. She is stable now to be discharged. Procedures Performed: none Results and Findings: Pending Mircobiology Results 05/19/19 11:15 Blood Blood Culture - Preliminary NO GROWTH 24 HOURS 05/19/19 10:40 Blood Blood Culture - Preliminary NO GROWTH 24 HOURS Lab Pending Results 05/18/19 22:30: Urine Color Yellow, Urine Appearance Clear, Urine pH 6.0, Ur Specific [place] 1.010, Urine Protein 30 H, Urine Glucose (UA) Negative, Urine Ketones 15, Urine Blood 50 H, Urine Nitrate Negative, Urine Bilirubin Negative, Prot Sulfosalicylic Acd 1+, Urine Urobilinogen Normal, Ur Leukocyte Esterase Negative, Urine RBC Trace, Urine WBC 0-5, Ur Epithelial Cells None seen, Amorphous Sediment Few - 1+, Urine Bacteria 1+ H, Urine Culture Comments Culture to follow 05/18/19 22:45: WBC 7.0, RBC 4.05 L, Hgb 11.4 L, Hct 34.6 L, MCV 85.4, MCH 28.1, MCHC 32.9, RDW 16.3 H, Plt Count 149 L, MPV 10.6, Immature Gran % (Auto) 0.90 H, Immature Gran # (Auto) 0.06 H, Neutrophils % 87.2 H, Lymphocytes % 5.3 L, Monocytes % 3.9, Eosinophils % 2.7, Basophils % 0.0, Nucleated RBC % 0.0, Neutrophils # 6.1 H, Lymphocytes # 0.37 L, Monocytes # 0.3, Eosinophils # 0.2, Absolute Basophils 0.0 05/18/19 22:45: Sodium 139, Plasma Sodium 140, Potassium 3.5, Chloride 102, Carbon Dioxide 24.3, Anion Gap 16.2 H, BUN 23, Creatinine 1.03, Est GFR (Non-Af Amer) 55 L D, BUN/Creatinine Ratio 22.3 H, Random Glucose 153 H D, Calcium 7.3 L, Calcium Adj for Albumin 7.9 L, Total Bilirubin 0.9, AST 561 H, ALT 324 H, Alkaline Phosphatase 333 H, Total Protein 6.6, Albumin 2.9 L 05/18/19 22:45: GGT 316 H 05/18/19 23:45: TSH 0.858 05/19/19 00:35: Lactic Acid, Venous 1.6 05/19/19 00:47: Amylase 70, Lipase 377 05/19/19 12:00: WBC 4.8 D, RBC 3.72 L, Hgb 10.4 L, Hct 32.2 L, MCV 86.6, MCH 28.0, MCHC 32.3, RDW 16.5 H, Plt Count 142 L, MPV 11.0, Neutrophils % (Manual) 73, Band Neuts % (Manual) 5 H, Lymphocytes % (Manual) 6 L, Monocytes % (Manual) 9, Eosinophils % (Manual) 6 H, Neutrophils # (Manual) 3.5, Lymphocytes # (Manual) 0.3 L, Monocytes # (Manual) 0.4, Eosinophils # (Manual) 0.3, Atypic/Reactive Lymphs 1, Platelet Estimate Decreased L, Polychromasia Trace, Hypochromasia Trace, Target Cells Trace 05/19/19 12:00: Sodium 143 H, Plasma Sodium 144 H, Potassium 3.8, Chloride 106, Carbon Dioxide 24.6, Anion Gap 16.2 H, BUN 17, Creatinine 1.10, Est GFR (Non-Af Amer) 51 L, BUN/Creatinine Ratio 15.5, Random Glucose 182 H, Calcium 6.9 L, Calcium Adj for Albumin 7.9 L, Total Bilirubin 0.7, AST 416 H, ALT 362 H, Alkaline Phosphatase 353 H, Total Protein 6.1 L, Albumin 2.4 L 05/19/19 12:00: PT 11.1 H, INR (Anticoag Therapy) 1.13 H 05/19/19 12:00: Hepatitis A IgM Ab Non-reactive, Hep Bs Antigen Non-reactive, Hep B Core IgM Ab Non-reactive, Hepatitis C Antibody Non-reactive, Hep C Ab Signal/Cutoff 0.01, Hepatitis Interpret Dnr 05/20/19 05:20: WBC 4.6, RBC 3.58 L, Hgb 10.0 L, Hct 30.5 L, MCV 85.2, MCH 27.9, MCHC 32.8, RDW 16.4 H, Plt Count 183, MPV 11.0, Immature Gran % (Auto) 0.90 H, Immature Gran # (Auto) 0.04 H, Neutrophils % 53.0, Lymphocytes % 21.0, Monocytes % 13.0 H, Eosinophils % 11.7 H, Basophils % 0.4, Nucleated RBC % 0.0, Neutrophils # 2.4, Lymphocytes # 0.97 L, Monocytes # 0.6, Eosinophils # 0.5, Absolute Basophils 0.0 05/20/19 05:25: Sodium 144 H, Plasma Sodium 144 H, Potassium 3.5, Chloride 108 H, Carbon Dioxide 25.6, Anion Gap 13.9 H, BUN 16, Creatinine 0.81, Est GFR (Non- Af Amer) 72 D, BUN/Creatinine Ratio 19.8, Random Glucose 120 H D, Calcium 7.4 L, Calcium Adj for Albumin 8.3 L, Total Bilirubin 0.4, AST 291 H, ALT 378 H, Alkaline Phosphatase 371 H, Total Protein 6.1 L, Albumin 2.5 L 05/21/19 06:00: PT 10.5, INR (Anticoag Therapy) 1.06 05/21/19 06:00: Sodium 140, Plasma Sodium 140, Potassium 4.0, Chloride 105, Carbon Dioxide 25.0, Anion Gap 14.0 H, BUN 15, Creatinine 0.81, Est GFR (Non-Af Amer) 72, BUN/Creatinine Ratio 18.5, Random Glucose 117 H, Calcium 7.9, Calcium Adj for Albumin 8.5, Total Bilirubin 0.4, AST 104 H, ALT 279 H, Alkaline Phosphatase 332 H, Total Protein 6.8, Albumin 2.9 L Discharge Location: Home Disposition: Home self-care Condition: Stable Discharge Activity: Activity as tolerated Discharge Diet: Low fat/chol Referrals: Libarnes,Roseller, MD [Primary Care Provider] - Additional Patient Instructions (free text): -Please make TCM appointment unless alf discharge, or if following up with outside provider. Thank you! Xenia @ [phone] or Michelle at [phone]. Follow up with me on her appointment date ( Thursday?) Complete Home Medications List: Complete Home Medication List: Multivitamin [Multivitamins] 1 ea PO DAILY 11/16/12 Blood Sugar Diagnostic, Drum [Accu-Chek Compact Plus Strips] 1 ea MC DAILY 03/21/15 Cholecalciferol (Vitamin D3) [Vitamin D3] 2,000 unit PO DAILY 03/21/15 Clopidogrel Bisulfate [Plavix] 75 mg PO DAILY 03/21/15 coenzyme Q10 10 mg capsule 10 mg PO DAILY cap 02/15/18 pravastatin 20 mg tablet 20 mg PO DAILY #90 tab 04/27/18 acetaminophen 500 mg tablet 500 mg PO Q6H PRN 06/03/18 losartan 100 mg tablet 100 mg PO DAILY #90 tab 08/16/18 glipizide ER 5 mg tablet, extended release 24 hr 5 mg PO DAILY #90 tab 01/20/19 levothyroxine 125 mcg tablet 125 mcg PO DAILY #90 tab 01/20/19 amlodipine 5 mg tablet 5 mg PO DAILY #90 tab 04/15/19 hydrocodone 5 mg-acetaminophen 325 mg tablet See Rx Instructions PO .COMPLEX PRN #30 tab 04/28/19
== END 2019-05-21 11:40 | disposition home or self-care (01) | DRG 690 ==
LOC: ER 21:58 → MS 05-19 04:05
PROVIDERS: ADMIT Family Medicine; ATTEND Internal Medicine
CPT/HCPCS: 36415; 76705; 80053; 80074; 81001; 82150; 82977; 83605; 83690; 84443; 85007; 85025; 85610; 87040; 87086; 90686; 93005; 96365; 96367; 99285; J0131

== ENCOUNTER 2019-07-19 08:10 | Inpatient (IN) ==
[~2019-07-19 08:10] MED LIST: ISOPROPYL ALCOHOL 480 APPL BTL MC ONE; TRANEXAMIC ACID 1,000 MG in NORMAL SALINE 100 ML IV PRN; ceFAZolin SODIUM 1 GM VIAL IV PRN; ceFAZolin SODIUM 1 GM VIAL ONE
[2019-07-19] MEDS: RINGER'S SOLUTION,LACTATED 1,000 ML IV PRN ×2 (08:52→12:05)
--- NOTE | 2019-07-19 09:23 | ANES ---
Anesthesia Pre Procedure Eval Vitals/Labs: Last Vital Signs Temp 37.0 C 07/19/19 08:27 Pulse 73 07/19/19 08:27 Resp 17 07/19/19 08:27 BP 177/86 H 07/19/19 08:27 Pulse Ox 96 07/19/19 08:27 HOME MEDICATIONS Multivitamin [Multivitamins] 1 ea PO DAILY 11/16/12 [Last Taken 07/18/19] Blood Sugar Diagnostic, Drum [Accu-Chek Compact Plus Strips] 1 ea MC DAILY 03/21/15 [Last Taken Unknown] Cholecalciferol (Vitamin D3) [Vitamin D3] 2,000 unit PO DAILY 03/21/15 [Last Taken 07/18/19] coenzyme Q10 10 mg capsule 10 mg PO DAILY cap 02/15/18 [Last Taken 07/18/19] pravastatin 20 mg tablet 20 mg PO DAILY #90 tab 04/27/18 [Last Taken 07/18/19] losartan 100 mg tablet 100 mg PO DAILY #90 tab 08/16/18 [Last Taken 07/19/19] glipizide 5 mg tablet, extended release 24 hr 5 mg PO DAILY #90 tab 01/20/19 [Last Taken 07/18/19] levothyroxine 125 mcg tablet 125 mcg PO DAILY #90 tab 01/20/19 [Last Taken 07/18] amlodipine 5 mg tablet 5 mg PO DAILY #90 tab 04/15/19 [Last Taken 07/18/19] aspirin 81 mg tablet,delayed release 81 mg PO DAILY 06/29/19 [Last Taken Unknown] tramadol 50 mg tablet See Rx Instructions PO Q6H PRN tab 06/29/19 [Last Taken Unknown] Allergies/Adverse Reactions: Allergies Allergy/AdvReac Type Severity Reaction Status Date / Time Iodinated Contrast Media Allergy Mild Hives Verified 06/29/19 09:38 [Iodinated Contrast- Oral and IV Dye] iodine Allergy Mild Hives Verified 06/29/19 09:38 sulfacetamide Allergy Mild Hives Verified 06/29/19 09:38 nitrofurantoin AdvReac Severe Liver Verified 07/19/19 08:21 [From Macrobid] problems latex AdvReac Mild RASH Verified 06/29/19 09:38 - Planned Procedure Planned Procedure: Left Reverse Total Shoulder Arthroplasty Medication List Reviewed:: Yes Allergies Verified: Yes Medical History (Last Reviewed 07/19/19 @ 09:21 by Bijan Wade CRNA) Bilateral knee pain Wears partial dentures upper Cerebrovascular disease Esophageal bleeding Onset Date: ~04/2018 Shoulder pain, left Onset Date: ~2017 Ataxia due to [employer] CVA, old, ataxia Coronary artery disease DJD (degenerative joint disease) Diabetes mellitus type II, controlled Diverticulitis large intestine Hyperlipidemia Hypertension Hypothyroidism Mitral regurgitation Obesity Varicose veins of lower extremity Carpal tunnel syndrome Onset Date: ~11/2012 Fibroid, uterine Onset Date: ~2010 Skin lesion precancerous lesion x2, Dr. Everett Surgical History (Last Reviewed 07/19/19 @ 09:21 by Bijan Wade CRNA) History of esophagogastroduodenoscopy (EGD) Onset Date: ~04/2018 [facility] H/O colonoscopy Onset Date: ~2006 benign polyp H/O dilation and curettage Onset Date: ~2006 polypectomy at [facility] H/O hernia repair x4 surgeries on bilateral [id number] H/O tubal ligation History of carpal tunnel release & History of colon surgery Onset Date: ~1996 ruptured diverticulitis, had colostomy for 3 months History of thyroid surgery Onset Date: ~1989 nodule History of tonsillectomy arteriectomy, carotid Onset Date: ~2003 Family History (Last Reviewed 07/19/19 @ 09:21 by Bijan Wade CRNA) Brother , suicide No problems noted. Father Myocardial infarction, Onset Age: 73 Lung cancer Cancer of kidney Mother , 70 CVA (cerebral vascular accident) Daughter Alive and well x4 Son Alive and well x3 - Family Anesthesia History Family History:: no untoward family reactions to anesthesia, no familial bleeding tendencies, no family history of clotting disorders, no family history of premature - Airway/Neck/Teeth Teeth Condition: intact Neck Exam: limited range of motion Mallampatti Score: 2 Thyromental (T-M) distance: > 6 cm Mandibulo Hyoid distance: > 3 cm - Respiratory Respiratory Physical: lungs clear Smoking Status: Never smoker Sleep Apnea currently treated: No Sleep Apnea by current assessment: No - Cardiovascular Cardiac History: valvular heart disease - MVP Tolerate Activity: Fair Heart Sounds: S1 & S2, Regular, Murmur - Gastrointestinal NPO since: 2400 - Anesthesia Assessment and Plan ASA Class: III Anesthesia Type Plan: General LMA, Block - Interscalene block for post op pain relief
[2019-07-19] MEDS ORDERED: ONDANSETRON HCL/PF 2 MG/ML VIAL ONE (09:37)
[2019-07-19] MEDS ORDERED: PROPOFOL VIAL IV ONE (09:37)
[2019-07-19] MEDS ORDERED: NORMAL SALINE 1,000 ML IV PRN (14:26)
[2019-07-19] MEDS ORDERED: MORPHINE SULFATE 2 MG/ML DISP.SYRIN IV PRN (14:26)
[2019-07-19] MEDS ORDERED: ACETAMINOPHEN 500 MG TABLET PO PRN (14:26)
[2019-07-19] MEDS ORDERED: oxyCODONE HCL/ACETAMINOPHEN 1 TAB TABLET PO PRN (14:26)
[2019-07-19] MEDS ORDERED: MAG HYDROX/ALUMINUM HYD/SIMETH 30 ML UDC PO PRN (14:26)
[2019-07-19] MEDS ORDERED: MAGNESIUM HYDROXIDE 30 ML UDC PO PRN (14:26)
[2019-07-19] MEDS ORDERED: ONDANSETRON HCL/PF 2 MG/ML VIAL IV PRN (14:26)
--- NOTE | 2019-07-19 14:35 | ANES ---
Post Anesthesia Discharge - Transfer of Care Transfer of Care handoff given to nurse: Yes - Discharge from PACU Discharge from PACU when meets criteria: Yes
--- NOTE | 2019-07-19 14:43 | OR ---
Operative Report - Dictated Report Narrative: Date: 07/12/19 Surgeon: Aguilar Dallas M.D. Medical Office Representative: None Preoperative diagnosis: Left shoulder osteoarthritis Postoperative diagnosis: Left shoulder osteoarthritis Procedure: Left reverse total shoulder arthroplasty Anesthesia: General plus regional Complications: None Estimated blood loss: 150 mL Specimens: Bone for disposal Retained implants: DePuy Delta Xtend modular eccentric epiphysis size 1 [employer]Puy [employer] Unite porocoat revision stem size 6 DePuy Delta Xtend cementless metaglene and associated screws DePuy Delta Xtend standard 38 mm glenosphere DePuy Delta Xtend 38 mm/+6 poly cup Drains: None Indications: Ariana is a 84 year-old female who has been followed in my clinic with complaints of shoulder pain consistent with left shoulder osteoarthritis. Physical exam and diagnostic imaging were consistent with this. Preoperative MRI demonstrated a chronic full-thickness rotator cuff tear. I counseled her on the option of reverse total shoulder arthroplasty. Conservative measures have failed including, but not limited to, passage of time, activity modification, medications, physical therapy/home exercise program, or injections. The risks, benefits, and alternatives were discussed in clinic. The risks being , bleeding, infection, blood clots, nerve, blood vessel injury, implant loosening/failure, persistent pain, stiffness, need for prolonged therapy, need for additional procedures, and persistent symptoms. Consent was obtained in the clinic. Procedure: After marking the correct extremity in the preoperative holding area, a timeout was performed in the operating room. IV antibiotics consisting of 1 g of Ancef were administered prior to the procedure. A general followed by regional anesthetic was induced by the nurse network technology instructor. This was in the supine position, then the patient was transitioned to a beachchair position with all bony prominences well-padded, head in neutral, the nonoperative arm well supported, and the legs padded with SCDs in place. The operative shoulder was then prepped and draped in a standard sterile fashion. Preoperatively the shoulder had passive forward flexion limited to 130 degrees, passive abduction limited to 110 degrees, passive external rotation limited to 75 degrees, and approximately 65 degrees of internal rotation and no instability. A standard deltopectoral incision was marked out over the anterior aspect of the shoulder approximately 10 cm in length. The skin was incised and dissection with a combination of electrocautery and Metzenbaum scissors was carried down through the subcutaneous tissue. The deltopectoral fascia was identified and the i nterval was developed using a combination of blunt finger dissection and dissection with Metzenbaum scissors. The cephalic vein was identified and retracted laterally along with the deltoid. The pectoralis major muscle was retracted medially revealing the anterior capsule of the shoulder and the conjoined tendon. The biceps tendon and bicipital groove was palpated and the tissue overlying this was incised revealing the biceps tendon. The lesser tuberosity was palpated and the subscapularis tendon was tagged with a 0 Vicryl stitch. This was then divided sharply with a knife leaving a small cuff of tissue attached to the lesser tuberosity for later repair. Blunt finger dissection was used to dissect the subscapularis away from the anterior glenoid neck. Dissection was carried down around the inferior neck of the humeral head. She had a large inferior osteophyte which was removed with a ronguer. At this point the glenohumeral joint was dislocated delivering the humeral head out of the wound. The majority of the infraspinatus and teres minor were still intact. She had no intact supraspinatus. A starting point was marked out centered over the humeral canal. The entry reamer was advanced down into the intramedullary canal. Sequential hand reaming was carried out up to 8 mm with good cortical purchase. We were unable to fully advance the 8 mm reamer down the canal due to her extremely narrow canal distally. The humeral head cutting guide was then attached to the reamer and set at 20 retroversion and the appropriate height. The cutting block was pinned into place and the rest of the jig was removed. An oscillating saw was used to make the humeral head cut. The protective cap was then placed over the cut end of the proximal humerus and this was then pushed posteriorly and inferiorly out of the way of the glenoid to give us good visualization of the glenoid. Attention was then turned to preparation of the glenoid. Glenoid retractors were placed anterior and posterior-inferiorly. Circumferential dissection was carried out around the glenoid releasing the capsule from the glenoid neck. The base of the coracoid was visualized and the medial scapular spine could be easily palpated. The labrum was then removed with a sharp knife. The pin guide was then placed on the glenoid to allow for inferior, slightly posterior, and slightly inferiorly tilted placement of our guide pin. This was advanced into the bone with good purchase. We confirmed appropriate position of her guidepin at this point. The central peg drill was then drilled over the guidepin. The cementless metaglene and was then impacted into place and placed in the appropriate rotation based on the location of the base of the coracoid and medial scapular spine. The superior and inferior screws were then drilled with good bone purchase. They were then measured and screws were placed with good purchase and good compression of the metaglene against the glenoid. The anterior and posterior screws were then drilled, measured, and placed. The superior and inferior locking screws were then locked into place. At this point we felt a 38 mm glenosphere was the appropriate size and the final glenosphere was screwed into the metaglene. Attention was turned back to the proximal humerus which was again delivered up and out of the wound. The proximal humeral reaming guide was then impacted as far as we could in the appropriate rotation this was still about 8 to 10 mm proud as there was not a reaming guide for the size 6 stem. The size 1 reaming guide was the appropriate size. The proximal humerus was then initially reamed and additional bone was removed with a rongeur. Final reaming was performed by hand with a acetabular grater reamer of the appropriate diameter. The reaming guide was then removed and the proximal humerus was partially broached with the size 8 broach in the appropriate version. The eccentricity measurement was visualized to be about 10 even though we could not fully seat the broach. A size 1 modular epiphysis was chosen as well as a size 6 stem. This was assembled on the back table with the appropriate eccentricity. This was then impacted into place in the appropriate version. This had good fill and seating into the proximal humerus. We then trialed off of our final stem. A 38+6 mm polyethylene gave good stability with full range of motion. The trial poly was removed and the shoulder was thoroughly irrigated. The final polyethylene was impacted into place and the shoulder was reduced. A final check showed full range of motion with good stability of our implant. The subscapularis was then repaired to the cuff of tissue on the lesser tuberosity using #2 FiberWire. The wound was once again copiously irrigated with normal saline and then closed in a layered fashion. The deltopectoral fascia was closed in an interrupted fashion with 0 Vicryl. Subcutaneous tissue was closed with interrupted 3-0 Vicryl in a deep dermal fashion. Skin was then closed with a running subcuticular 4-0 Monocryl and sealed with a Prineo dressing. The wound was then dressed with 4 x 4's, ABDs, and foam tape. All sponge, needle, blade, and instrument counts were correct prior to closing the wounds. The patient was awoken and transferred to the postanesthesia care unit in stable condition.
--- NOTE | 2019-07-19 14:43 | ANES ---
Post Anesthesia Assessment - Vital Signs Vitals: Last Vital Signs Temp 37.0 C 07/19/19 08:27 Pulse 73 07/19/19 08:27 Resp 17 07/19/19 08:27 BP 177/86 H 07/19/19 08:27 Pulse Ox 96 07/19/19 08:27 Airway Patency: Normal - Mental Status Level Of Consciousness: Awake - Pain Level Pain Score: 0 - N/V Assessment Nausea/Vomiting Presence: None Dehydration:: No
--- NOTE | 2019-07-19 14:43 | ANES ---
Anesthesia Procedure Note Procedure Note: ANESTHESIA PROCEDURE NOTE Date of procedure: 07/19/2019. Time of procedure: 1115. Performed by: Román Nguyen CRNA Turner Splitter Machine Operator: Maddy Cespeeds RN . Preprocedure diagnosis: Left shoulder DJD. Post procedure diagnosis: Same. Procedure: Ultrasound-guided left interscalene nerve block Indications: Postoperative analgesia. Findings: Patient brought to operating room #2 and placed in a supine position. The patient was given a general anesthetic. Patient was then placed in a semi- Fowlers position. The left side of patient's neck was prepped with ChloraPrep. Ultrasound utilized to identify the brachial plexus in the left interscalene groove. A 22-gauge 2 inch regional block needle was advanced under ultrasound guidance until tip of needle was placed just superior to brachial plexus. Nerve stimulator was utilized with muscle twitch noted and decreasing in intensity from 0.8mA to 0.5 mA. Muscle twitch disappeared at 0.45 mA. A total of 35 mL of 0.5% Marcaine with epinephrine 1-200,000 was injected with adequate spread of local anesthesia noted around the nerve roots. Regional block needle was removed intact. EBL: Minimal. Fluids: N/A. Specimen: N/A. Post procedure condition: The patient tolerated the procedure well. No complications were noted. Thank you for this consultation Román Nguyen CRNA
[2019-07-19] MEDS: oxyCODONE HCL/ACETAMINOPHEN 1 TAB TABLET PO PRN ×2 (17:46→21:56)
[2019-07-19] MEDS: ceFAZolin SODIUM 1 GM in DEXTROSE 5 % IN WATER 100 ML IV SCH ×2 (17:48)
[2019-07-19] MEDS: SIMVASTATIN 10 MG TABLET PO SCH (19:59)
[2019-07-19] MEDS: SENNOSIDES/DOCUSATE SODIUM 1 TAB TABLET PO SCH (19:59)
[2019-07-20] MEDS: ceFAZolin SODIUM 1 GM in DEXTROSE 5 % IN WATER 100 ML IV SCH ×4 (02:17→10:42)
[2019-07-20] MEDS: oxyCODONE HCL/ACETAMINOPHEN 1 TAB TABLET PO PRN ×4 (03:19→19:39)
[2019-07-20] MEDS: LEVOTHYROXINE SODIUM 125 MCG TABLET PO SCH (07:11)
[2019-07-20] MEDS: LOSARTAN POTASSIUM 50 MG TABLET PO SCH (08:08)
[2019-07-20] MEDS: glipiZIDE 5 MG TAB.SR.24H PO SCH (08:09)
[2019-07-20] MEDS: amLODIPine BESYLATE 5 MG TABLET PO SCH (08:09)
[2019-07-20] MEDS: ASPIRIN 81 MG TABLET.DR PO SCH (08:09)
--- NOTE | 2019-07-20 09:00 | PN ---
Subjective - Date and Time Seen Date: 07/20/19 Time: 08:55 Subjective Narrative: No events overnight. Pain well controlled this morning. No other complaints. Objective - Vitals Vitals: Last Vital Signs Temp 36.7 C 07/20/19 07:26 Pulse 90 07/20/19 08:09 Resp 14 07/20/19 07:26 BP 115/67 07/20/19 08:09 Pulse Ox 94 07/20/19 07:26 - Exam Exam Narrative: Gen: alert, oriented x4 Resp: breathing non-labored on room air MSK: immobilizer in place, dressings intact without drainage, sensation intact over lateral deltoid, able to flex and extend all fingers with good strength, distal cap refill brisk Assessment/Plan Plan Narrative: 84 yo F s/p L reverse total shoulder arthroplasty, POD #1. -immmobilizer at all times. -oral pain meds, IV for breakthrough -reg diet -PT/OT -dispo: discharge planning ongoing, will reassess at noon today to determine if patient is safe to discharge home - Problems/Diagnosis (1) Status post total shoulder arthroplasty Problem: Acute (2) Osteoarthritis of left glenohumeral joint Problem: Chronic
[2019-07-20] MEDS: SIMVASTATIN 10 MG TABLET PO SCH ×2 (19:39→20:47)
[2019-07-20] MEDS: SENNOSIDES/DOCUSATE SODIUM 1 TAB TABLET PO SCH ×2 (19:39→20:47)
[2019-07-21] MEDS: LEVOTHYROXINE SODIUM 125 MCG TABLET PO SCH (07:32)
[2019-07-21] MEDS: glipiZIDE 5 MG TAB.SR.24H PO SCH (10:03)
[2019-07-21] MEDS: LOSARTAN POTASSIUM 50 MG TABLET PO SCH (10:03)
[2019-07-21] MEDS: amLODIPine BESYLATE 5 MG TABLET PO SCH (10:03)
[2019-07-21] MEDS: ASPIRIN 81 MG TABLET.DR PO SCH (10:05)
--- NOTE | 2019-07-21 14:22 | DS ---
(1) Status post total shoulder arthroplasty Problem: Acute (2) Osteoarthritis of left glenohumeral joint Problem: Chronic Date of Discharge:: 07/21/19 Description of Stay: Eloina was taken to the OR on 07/19/19 for left reverse total shoulder arthropl asty. She tolerated the procedure well and there were no complications. She was admitted to the floor postoperatively for pain control, postoperative monitoring, and physical therapy. She remained stable on the floor and recovered as expected. She resumed a normal diet as well as normal bladder and bowel function. Her pain was well-controlled on oral pain medications. She made appropriate gains with physical therapy. Her wound was followed and showed no signs of infection or other complication. She was deemed stable for discharge home with home health on 07/21/2019. Mrs. Pryor is confined to the home due to postoperative immobility and inability to drive secondary to a reverse total shoulder arthroplasty. The need for physical therapy is to improve her mobility and independence and the need for halfway is for postoperative medical monitoring, monitoring of wound healing, and assistance with activities of daily living. The need for home health care skilled services is directly related to the time spent [id number] with the patient. Procedures Performed: see notes below List Procedures: Left reverse total shoulder arthroplasty on 07/19/19. Discharge Location: Home Disposition: Home Health Service Home Health Agency: [facility] Condition: Good Discharge Activity: Non-Weight bearing, Other - Immobilizer at all times except for ROM exercises and showering/bathing. Discharge Diet: General/regular food Referrals: Aguilar Dallas MD [Staff Physician] - 08/01/19 9:45 am Additional Patient Instructions (free text): [facility] at Discharge. Follow-up with Dr. Dallas in the office on 08-01-19 at 9:45am. Orthopedic Discharge Instructions: 1. Immobilizer at all times except for ROM exercises and bathing. 2. Oral pain meds. 3. Inspect mesh dressing daily to make sure it is not peeling up and there is no drainage. If the dressing is peeling or if there is any drainage, cover with 4 x 4 gauze and tape and notify the orthopedic clinic. 4. May shower with mesh dressing uncovered as long as it is intact. 5. DVT prophylaxis: Aspirin 81 mg daily 6. Patient to begin with in-home physical therapy for gentle ROM. 7. Call the orthopedic clinic with any concerns regarding the patient's wound or overall medical condition. 8. Follow-up in orthopedic clinic in 2 weeks. Prescriptions (Any new or edited meds): oxyCODONE HCL/ACETAMINOPHEN [Percocet 5 MG/325 MG] 1 - 2 tab PO Q4H PRN #90 tab PRN Reason: Pain Transmission Status: Sent to [place], [place] Complete Home Medications List: Complete Home Medication List: Multivitamin [Multivitamins] 1 ea PO DAILY 11/16/12 Blood Sugar Diagnostic, Drum [Accu-Chek Compact Plus Strips] 1 ea MC DAILY 03/21/15 Cholecalciferol (Vitamin D3) [Vitamin D3] 2,000 unit PO DAILY 03/21/15 coenzyme Q10 10 mg capsule 10 mg PO DAILY cap 02/15/18 pravastatin 20 mg tablet 20 mg PO DAILY #90 tab 04/27/18 glipizide 5 mg tablet, extended release 24 hr 5 mg PO DAILY #90 tab 01/20/19 levothyroxine 125 mcg tablet 125 mcg PO DAILY #90 tab 01/20/19 amlodipine 5 mg tablet 5 mg PO DAILY #90 tab 04/15/19 aspirin 81 mg tablet,delayed release 81 mg PO DAILY 06/29/19 Losartan Potassium [Cozaar] 100 mg PO DAILY tablet 07/21/19 losartan 100 mg tablet 100 mg PO DAILY #90 tab 07/21/19 oxyCODONE HCL/ACETAMINOPHEN [Percocet 5 MG/325 MG] 1 - 2 tab PO Q4H PRN #90 tab 07/21/19
[2019-07-21] MEDS: oxyCODONE HCL/ACETAMINOPHEN 1 TAB TABLET PO PRN (15:11)
[2019-07-21 15:42] VITALS: BP 141/69
== END 2019-07-21 16:07 | disposition home health service (06) | DRG 483 ==
LOC: MS 08:10
PROVIDERS: ADMIT Orthopaedic Surgery; ATTEND Orthopaedic Surgery
DX: E11.9 Type 2 diabetes mellitus without complications; Z68.25 Body mass index [BMI] 25.0-25.9, adult; E66.9 Obesity, unspecified; I10 Essential (primary) hypertension; I25.10 Atherosclerotic heart disease of native coronary artery without angina pectoris; M19.012 Primary osteoarthritis, left shoulder; E03.9 Hypothyroidism, unspecified; E78.5 Hyperlipidemia, unspecified; I83.90 Asymptomatic varicose veins of unspecified lower extremity
CPT/HCPCS: 73030; 97116; 97140; 97161; 97166; 97530; J2405